=== PATIENT | male | born 1990 | race Caucasian/White ===

== ENCOUNTER 2017-05-13 20:05 | Emergency (ER) | payer OTHER ==
[2017-05-13] MEDS ORDERED: TDAP ADULT 0.5 ML INJ (BOOSTRIX) IM ONE (20:49)
[2017-05-13] MEDS ORDERED: CEPHALEXIN 500MG PREPACK#4 BTL TAKEHOME ONE (20:49)
[2017-05-13] MEDS ORDERED: OXYCODONE/APAP 5/325MG PREPACK#4 BTL TAKEHOME ONE (20:49)
--- NOTE | 2017-05-13 20:49 | EDPHY ---
General Time Seen by Provider: 05/13/17 20:38 Narrative: CHIEF COMPLAINT: Laceration HISTORY OF PRESENT ILLNESS: Patient complains of left hand laceration. This is the base of the left thumb. Happened within the last 2 hr. This happened at work. He said he was wearing a cap volar glove but the "v knife" punctured right through his glove. It is over the left thenar eminence. It was moderately to severely painful. No numbness. No tingling. No weakness. Moderate bleeding that has stopped with pressure. No pulsatile bleeding described. No foreign body described. Pain is improved at rest. Does not radiate. Able to fully bend, straighten, oppose the left thumb. No trauma elsewhere. Does not remember when his last tetanus was but knows that was greater than 10 years. No other associated complaints or modifying factors. TIME OF INJURY: Less than 2 hr prior to arrival TETANUS STATUS: Questionable. Patient feels is greater than 10 years MEDICAL/SURGICAL/SOCIAL HISTORY: Uncomplicated REVIEW OF SYSTEMS: Ten systems reviewed and are negative unless otherwise noted in the HPI EXAMINATION General Appearance: Alert, no distress Head: normocephalic, atraumatic Cardiovascular: Radial pulses symmetric. Brisk cap refill on the left thumb. Good signs of perfusion of the left hand Neurological: A&O, 2 point sensation intact in left thumb. Interossei strength is symmetric. Processor Inspector strength symmetric. Skin: Warm and dry, no rash. There is a 3 cm laceration to the left thenar eminence. No foreign body. No exposure of underlying flexor apparatus or muscular body. No pulsatile bleeding. No fluctuance. No signs of contaminant. Extremities: Tenderness of the area laceration. No tenderness of the distal phalanx on the left thumb. Range of motion of the thumb is fully intact including flexion, extension, abduction, adduction and opposition. DIFFERENTIAL DIAGNOSES: Including but not limited to laceration, laceration complication, laceration foreign body, laceration with tendon injury, open fracture MDM: 8:45 p.m. Complex laceration of the left thenar eminence. There is no obvious tendon injury or foreign body. He is neurovascular intact distally. He retains full range of motion of the thumb. I have anesthetize the area. He will need a Tdap booster. I have ordered 1 dose of oral pain medication and keflex. I have anesthetize the area. Proceed with irrigation and closure. 9:35 p.m. Laceration to left thenar eminence. X-ray as read by me reveals no evidence of foreign body or fracture. I have closed the wound with good approximation wound borders. This was tolerated well without complication. Neurovascular intact postprocedure. I have dressed the wound with bacitracin and sterile gauze. We placed in Alum[place]oam splint temporarily. We discussed wound care. We discussed follow up with worker's compensation [facility]. We discussed Keflex prescription to completion. PROCEDURE: Laceration repair Consent: Verbal Location: Left thumb thenar eminence Length of repair: 3 cm Complexity: Complex Layer involvement: Single Anesthesia: Local. 1% lidocaine plain. 7 mL Irrigation: Extensive Debridement: None Procedure description: Following good anesthesia, the wound was copiously irrigated. Wound bed was explored with a sterile glove, and there is no foreign body noted. Wound borders were approximated well with good hemostasis. Tolerated well without complication. Suture/Staple material: 5-0 Ethilon, 8 simple interrupted sutures Wound care: Routine as discussed Suture/Staple removal: 10 Days SUPERVISION: This patient was independently evaluated without direct involvement of or examination by the attending physician. ED Precautions: Worsening pain. Erythema, edema, cyanosis, pallor, paresthesia or anesthesia. - History Smoking Status: Never smoked - Objective Vital Signs: Initial Vital Signs Temperature (C) 98.6 F 05/13/17 20:25 Heart Rate 62 05/13/17 20:25 Respiratory Rate 16 05/13/17 20:25 Blood Pressure 111/59 L 05/13/17 20:25 O2 Sat (%) 95 05/13/17 20:25 O2 Delivery Mode Room Air Allergies/Adverse Reactions: peanut Allergy (Verified 05/13/17 20:22) Penicillins Allergy (Verified 05/13/17 20:22) Home Medications: Medication Instructions Recorded Abilify 05/13/17 Cephalexin [Keflex (*)] 500 mg PO QID #24 cap 05/13/17 LaMICtal 05/13/17 Latuda 05/13/17 Medications Given: Discontinued Medications Cephalexin (Keflex 500 Mg Prepack#4) 1 btl TAKEHOME EDNOW ONE PRN Reason: Protocol Stop: 05/13/17 20:50 Last Admin: 05/13/17 21:10 Dose: 1 btl Diphtheria/Tetanus/Acell Pertussis (Boostrix) 0.5 ml IM .ONCE ONE Stop: 05/13/17 20:50 Last Admin: 05/13/17 21:09 Dose: 0.5 ml Oxycodone/Acetaminophen (Percocet 5/325mg Prepack#4) 1 btl TAKEHOME EDNOW ONE Stop: 05/13/17 20:50 Last Admin: 05/13/17 21:11 Dose: 1 btl Departure - Departure Disposition: Home, Routine, Self-Care Clinical Impression: Laceration of left thumb without damage to nail Qualifiers: Encounter type: initial encounter Foreign body presence: without foreign body Qualified Code(s): S61.012A - Laceration without foreign body of left thumb without damage to nail, initial encounter Condition: Good Instructions: Care For Your Stitches (DC), Laceration (ED) Additional Instructions: 1. Daily wound care with simple antibacterial wash and thin layer of bacitracin 2. Do not submerge the laceration under any water of any kind until sutures are removed 3. Ibuprofen [id number] as needed 4. Pain medication as prescribed as needed 5. Keflex as prescribed to completion 6. Follow up with worker's compensation [facility] 7. ED precautions as discussed 8. Suture removal in 10 days either here or with her worker's compensation Clinic Referrals: NONE *PRIMARY CARE P,. [Primary Care Provider] - As per Instructions Physician,Emergency Dept, [Medical Doctor] - As per Instructions Stand Alone Forms: Work Excuse Prescriptions: Cephalexin [Keflex (*)] 500 mg PO QID #24 cap
[2017-05-13 21:49] VITALS: BP 127/77
== END 2017-05-13 21:48 | disposition home or self-care (01) ==
PROC: 0HQGXZZ Repair Left Hand Skin, External Approach (ICD-10-PCS; principal; 2017-05-13)
DX: S61.012A Laceration without foreign body of left thumb without damage to nail, initial encounter (principal); Z23 Encounter for immunization; Z91.010 Allergy to peanuts; W26.0XXA Contact with knife, initial encounter; Y92.69 Other specified industrial and construction area as the place of occurrence of the external cause; Y99.8 Other external cause status; Y93.89 Activity, other specified